=== PATIENT | male | born 1965 ===

== ENCOUNTER 2017-03-05 09:49 | Day surgery (SDC) | payer OTHER ==
[2017-03-05 10:16] VITALS: BMI 31.3
[2017-03-05] MEDS ORDERED: Propofol 10 mg/ml Inj (20 ML) ONE ×3 (12:19→13:10)
[2017-03-05] MEDS ORDERED: Sodium Chloride 0.9% 500 ML IV ONE (12:20)
[2017-03-05 13:04] VITALS: TEMP 97.4
[2017-03-05 13:17] VITALS: O2SAT 98
[2017-03-05 14:04] VITALS: BP 105/68; PULSE 65; RESP 20
== END 2017-03-05 13:45 | disposition home or self-care (01) ==
LOC: C.ENDO 09:49
PROVIDERS: ATTEND Internal Medicine Gastroenterology
DX: D12.4 Benign neoplasm of descending colon (principal); K64.8 Other hemorrhoids
CPT/HCPCS: 45388; 88305; J2001; J2704; J7040